=== PATIENT | female | born 1990 | race Caucasian/White ===

== ENCOUNTER 2017-12-22 14:40 | Emergency (ER) | payer SELFPAY ==
[2017-12-22 14:41] VITALS: BP 130/81; PULSE 123; RESP 16; TEMP 37.2; O2SAT 99; BMI 29.1
--- NOTE | 2017-12-22 15:00 | ED.RN ---
Patient reports bilateral nipple piercing on 12/02 and 1 week later, tatoo to right inner calf area. C/o drainage from tatoo area which is not present at this time. Bilateral nipples tender but without redness however there is some spotty redness to right lateral breast and under left breast. Unknown fevers.
--- NOTE | 2017-12-22 15:14 | ED.DCSUM_ITS ---
- ER Visit Summary Date of Service: 12/22/17 Chief Complaint: Nipple piercing infection History of Present Illness: The patient is a 27 F the emergency department 3 days of fever, chills, and drainage from bilateral nipple piercings. Patient states that she had this done about 3 weeks ago. She states that she was recovering without issue. Over the past 3 days, she began to develop pain in her left breast. She states that she had some crusting and purulent drainage from the piercing. Her fianc? is a glazier artist. She was doing warm compresses and antiseptic wash. She states that the symptoms actually improved , but have not moved to the right breast. She has begun to have subjective fevers and chills. She is also had nausea. She has no history of immunosuppression. She does not take any daily medication. She denies any other systemic complaints. Physical Examination: Vital signs reviewed General: Well-nourished, well-developed Head: Normocephalic, atraumatic Eyes: Pupils equal and reactive, extraocular muscles intact Neck, supple, no lymphadenopathy Heart: Regular rate and rhythm Respiratory: No distress, clear bilaterally Abdomen: Soft, nontender, nondistended, no peritoneal signs Back: Nontender Extremities: Nontender, no edema, no cords Skin: Normal color no rash Neuro: Alert and oriented, no focal or lateralizing deficits Test Results: [] Emergency Department Course and Treatment: Breast exam is done with nurse junk removal specialist. Patient does have some scant crusting drainage from the left nipple piercing. There is no abscess. There is no fluctuance. There is no streaking. There is no purulence can be expressed from the right piercing. She does have some streaking approximately 2 cm at the right lateral aspect of the nipple into the breast tissue. There is no lymphadenopathy in the axilla. There is no focal abscess. I did discuss options with the patient. I do feel that the piercings are still new enough that they are encouraging any drainage. I am hesitant to remove the piercings at this time because it is draining around it. I did consumer credit counselor patient on continuing warm compresses and antiseptic cleansing. We are going to do oral antibiotics in a short course of analgesic pain medication. I did consumer credit counselor her that if her symptoms worsen at all within the next 24-48 hours, she needs to return immediately to the emergency department as we will likely have to remove the piercings at that time, but I do feel that they are likely encouraging the drainage. She is comfortable with this plan of care. Patient will be discharged home. Treatment Plan: [] Disposition: Charge Impression: 1. Bilateral piercing infection of the nipples This note was generated with [employer] dictation software. It may contain incorrect words, spelling, and punctuation that were not noted in review of the chart prior to signing ED Disposition - Plan for ED Patient: Chief Complaint: Wound Check Instructions: ED Wound Infec After Surgery Prescriptions: Hydrocodone Bitart/Apap 5-325 [[place] 5/325] 1 tab PO Q6H PRN PRN 3 Days #12 tab PRN Reason: Pain Ondansetron [Zofran Odt] 4 mg PO Q8H PRN PRN #10 tab PRN Reason: Nausea Cephalexin [Keflex] 500 mg PO Q8 #30 cap Smz/Tmp Ds [Bactrim Ds] 1 tab PO BID #20 tab Referrals: Antoine Martinez III, MD [Primary Care Provider] -
[2017-12-22] MEDS: Ondansetron ODT 4 MG Tablet PO (15:35)
[2017-12-22] MEDS: HYDROcodone Bitartrate/Apap 5/325 Tablet PO (15:35)
[2017-12-22] MEDS: Smz/Tmp Ds Tablet 1 TABLET PO (15:36)
[2017-12-22 15:39] VITALS: BP 120/106; PULSE 110; RESP 14; O2SAT 100; O2SAT 99
== END 2017-12-22 15:43 | disposition home or self-care (01) ==
PROVIDERS: Emergency Provider Emergency Medicine; Family Provider Family Medicine; PCP Family Medicine
DX: N61.0 Mastitis without abscess (principal)
CPT/HCPCS: 99283

== ENCOUNTER 2018-04-30 17:18 | Emergency (ER) | payer MEDICAID, SELFPAY ==
[2018-04-30 17:19] VITALS: BP 127/68; PULSE 90; RESP 18; TEMP 37.6; O2SAT 99; BMI 29.0
[2018-04-30] MEDS: Ondansetron 4 MG/2 ML Vial IV (17:49)
[2018-04-30] MEDS: Ketorolac 30 MG/ML Syringe IV (17:49)
[2018-04-30] MEDS: 0.9% Normal Saline 1,000 ML 1000 ML IV (17:50)
--- NOTE | 2018-04-30 18:42 | ED.DCSUM_ITS ---
- ER Visit Summary Date of Service: 04/30/18 Chief Complaint: Vomiting History of Present Illness: The patient is a [address] Antoine Martinez III. She reports that she has vomiting that began at 1130 this morning. She is vomited 5 times. No blood or emesis. After the onset of vomiting she developed abdominal pain. She describes as a continuous cramping, aching pain Zeta 10 at worst and 6 out of 10 currently. Is worsened by nothing relieved by nothing. Denies any diarrhea. Her last bowel was today. She had no melena or hematochezia. No dysuria frequency. She is on her menstrual period now. Patient reports that her friend told her that she has been vomiting today as well. Has not been camping out of the country. No possible bad food exposure. Does not drink well water. No recent antibiotic use. Physical Examination: Vitals: Stable. Afebrile. General: Well-nourished and well-developed. Head: Normocephalic atraumatic. Neck: Supple, no lymphadenopathy. No JVD. Nontender. Cardiovascular: Regular rate and rhythm. No murmurs. Respiratory: No respiratory distress. Clear to auscultation bilaterally. Abdominal: Soft, mild diffuse tenderness palpation, nondistended, normal bowel sounds. No guarding, rebound, or peritoneal signs. Back: Nontender. Extremities: Nontender, no edema. Skin: Normal color, no rash. Neurologic: Alert and oriented ?3. Cranial nerves II through XII are intact. Normal strength and sensation. Psych: Normal affect. Emergency Department Course and Treatment: Patient had an IV placed. She was given Toradol and Zofran IV. She is resting comfortably. She had no further vomiting. Treatment Plan: Patient be discharged with Zofran and instructed follow-up her primary care physician 1-2 days if not improving. Return to the emergency department for any worsening symptoms. Disposition: To home in improved and stable condition. Impression: 1. Vomiting. This note was generated with [employer] dictation software. It may contain incorrect words, spelling, and punctuation that were not noted in review of the chart prior to signing ED Disposition - Plan for ED Patient: Disposition: Home or Assisted Living Chief Complaint: Nausea/Vomiting Instructions: ED Nausea Vomiting Prescriptions: Ondansetron [Zofran Odt] 4 mg PO Q8H PRN PRN #10 tablet PRN Reason: Nausea Referrals: Antoine Martinez III, MD [Primary Care Provider] - 1-2 Days if not improving
[2018-04-30 18:50] VITALS: BP 134/71; PULSE 78; RESP 15; O2SAT 98
== END 2018-04-30 18:51 | disposition home or self-care (01) ==
PROVIDERS: Emergency Provider Emergency Medicine; Family Provider Family Medicine; PCP Family Medicine
DX: R11.10 Vomiting, unspecified (principal); Z72.0 Tobacco use
CPT/HCPCS: 96361; 96374; 96375; 99283; J7030; J2405

== ENCOUNTER 2018-05-19 17:12 | Emergency (ER) | payer MEDICAID, SELFPAY ==
[2018-05-19 17:14] VITALS: BP 133/73; PULSE 84; RESP 16; TEMP 37.1; O2SAT 97; BMI 29.0
--- NOTE | 2018-05-19 17:55 | ED.VISSUMM ---
- ER Visit Summary Date of Service: 05/19/18 Chief Complaint: Dental pain History of Present Illness: The patient is a 27 F who presents with left lower dental pain that has been getting worse over the past couple days. Patient states she knows she has a cavity over the left lower molar area. Patient states she has an appointment with a dentist. Patient denies any fevers or chills. Patient denies any difficulty breathing or difficulty swallowing. Patient states the pain is worse with chewing. Physical Examination: Vital signs are stable. Patient is afebrile. Patient is in no acute distress. Oral mucosa is pink and moist. There are dental caries noted over the left lower second and third molars. There is some mild gingival edema. There is no discharge or drainage. There is no sublingual edema or erythema. Airway is patent. Neck is supple. There is no JVD or lymphadenopathy. The remaining physical exam is within normal limits. Emergency Department Course and Treatment: Patient was given prescriptions for clindamycin and Naprosyn. Patient was instructed to follow-up with her dentist as scheduled. Patient understood and was agreeable with the plan. All questions were answered. Disposition: Discharge home Impression: Infected dental caries This note was generated with [employer] dictation software. It may contain incorrect words, spelling, and punctuation that were not noted in review of the chart prior to signing ED Disposition - Plan for ED Patient: Disposition: Home or Assisted Living Chief Complaint: Dental Diagnosis: Infected dental caries Instructions: ED Tooth Pain Prescriptions: Naproxen [Naprosyn] 500 mg PO BID PRN #20 tab Clindamycin HCl [Cleocin] 300 mg PO Q6H #40 cap Referrals: Antoine Martinez III, MD [Primary Care Provider] -
[2018-05-19 18:30] VITALS: BP 135/70; PULSE 84; RESP 18
== END 2018-05-19 18:31 | disposition home or self-care (01) ==
PROVIDERS: Emergency Provider Emergency Medicine; Family Provider Family Medicine; PCP Family Medicine
DX: K02.9 Dental caries, unspecified (principal); K04.7 Periapical abscess without sinus
CPT/HCPCS: 99282

== ENCOUNTER 2021-01-09 07:44 | Emergency (ER) | payer SELFPAY ==
[2021-01-09 07:45] VITALS: BP 117/88; PULSE 94; RESP 16; TEMP 36.1; O2SAT 98; BMI 27.3
--- NOTE | 2021-01-09 07:54 | EKG12_ITS ---
Test Reason : CP Blood Pressure : / mmHG Vent. Rate : 086 BPM Atrial Rate : 086 BPM P-R Int : 166 ms QRS Dur : 082 ms QT Int : 352 ms P-R-T Axes : 073 076 061 degrees QTc Int : 421 ms Normal sinus rhythm Normal ECG Confirmed by RABIA GRANADO, JACQUELINE ([id number]), editorial cartoonist BELTRAN HAWKINS ([id number]) on 01/11/2021 11:28:56 AM Referred By: Confirmed By:JACQUELINE CAMARILLO MD
--- NOTE | 2021-01-09 07:55 | ED.DCSUM_ITS ---
History of Present Illness Chief Complaint: Chest Other Informant: Patient Narrative: 30-year-old healthy female presents with lower right mid axillary and anterior chest pain. Symptoms began 5 days ago. She denies any trauma or known injury. States it is worse with movement and with touch. She also notes its worse when she coughs or sneezes. No nausea or vomiting. No fevers. She states that she really does not have much of a cough and there is no sputum production. She denies any prior abdominal surgeries or any abdominal symptoms. No urinary symptoms. She has been eating normally. She denies any rashes. She states that she googled her symptoms and wonders if she has slipping rib syndrome. She states she has tried Tylenol and anti-inflammatories as well as heat and ice with no relief. Past Medical History - Allergies and Home Meds Allergies/Adverse Reactions: Allergies amoxicillin [Amoxicillin] Allergy (Verified 01/09/21 07:45) Hives Primary Care Physician: Antoine Martinez III, MD [Primary Care Provider] - 1 Week if not improving Past Medical History: None Surgical History: noncontributory Smoking Status: Current some day smoker Drugs: None Review of Systems General: Denies: Chills, Fever, Sweats Eyes: Denies: Visual changes - bilaterally, Diplopia ENT: Denies: Rhinorrhea, Sore throat Cardiovascular: Reports: Chest pain. Denies: Palpitations Respiratory: Denies: Dyspnea, Cough, Dyspnea on exertion Gastrointestinal: Denies: Abdominal pain, Nausea, Vomiting, Diarrhea, Melena, Hematochezia Genitourinary: Denies: Dysuria, Hematuria, Frequency Musculoskeletal: Denies: Back pain, Extremity Pain Skin: Denies: Rash, Wounds Neurological: Denies: Headache, Weakness, Numbness Physical Exam Vital Signs/Narrative: Vital Signs Temp Pulse Resp BP Pulse Ox 01/09/21 07:45 96.9 F L 94 16 117/88 H 98 Inital Vital Signs reviewed: Yes General: Well nourished, Well developed, No Acute Distress Head: Normocephalic, Atraumatic Eyes: Perrl, EOMI ENT: Moist mucous membranes, No rhinorrhea Neck: Supple, Nontender Cardiovascular: Regular rate, Regular rhythm, No murmurs Respiratory: No distress, CTA bilaterally, Chest tenderness - Patient has exquisite tenderness to palpation over the right lower mid axillary and anterior ribs. Touch reproduces her pain. Abdomen: Soft, Nontender, Nondistended, Normal bowel sounds Back: Nontender, Normal Inspection Extremities: Nontender, No edema Skin: Normal color, No rash Neurological: Alert, Oriented x3, Cranial nerves II-XII grossly intact, Normal Strength, Normal Sensation Psychological: Normal affect, Normal Mood Diagnostic/Tx/Re-eval Clinical Impression(s) from Imaging Studies Chest X-Ray 01/09/21 08:20 IMPRESSION: Normal x-ray examination of the chest. Electronically Signed: Chao Jara MD at 8:36 EDT , Service support , Chest CTA 01/09/21 08:42 IMPRESSION: Normal CTA chest examination, without a demonstrated pulmonary embolism or arterial dissection. Electronically Signed: Chao Jara MD at 9:11 EDT , Service support , Laboratory Last Values WBC 10.2 K/mm3 (4.4-11.0) 01/09/21 08:00 RBC 4.36 M/mm3 (4.2-5.4) 01/09/21 08:00 Hgb 13.0 g/dL (12.0-15.0) 01/09/21 08:00 Hct 40.1 % (37-47) 01/09/21 08:00 MCV 92.0 fL (81-99) 01/09/21 08:00 MCH 29.8 pg (27.0-32.0) 01/09/21 08:00 MCHC 32.4 g/dL (32-36) 01/09/21 08:00 RDW Std Deviation 42.0 fl (35.1-43.9) 01/09/21 08:00 RDW Coeff of Kala 12.2 % (11.6-14.6) 01/09/21 08:00 Plt Count 360 K/mm3 (150-450) 01/09/21 08:00 MPV 9.5 fl (6.2-12.0) 01/09/21 08:00 Immature Gran % (Auto) 0.300 % (0.0-0.9) 01/09/21 08:00 Neut % (Auto) 69.4 % (47-70) 01/09/21 08:00 Lymph % (Auto) 16.6 % (19-41) L 01/09/21 08:00 [place] % (Auto) 6.8 % (0-10) 01/09/21 08:00 Eos % (Auto) 6.4 % (0-5) H 01/09/21 08:00 Baso % (Auto) 0.5 % (0-1) 01/09/21 08:00 Absolute Neuts (auto) 7.1 X10^3/uL (2.0-7.7) 01/09/21 08:00 Absolute Lymphs (auto) 1.70 X10^3/uL (0.83-4.51) 01/09/21 08:00 Nucleated RBC % 0 % (0-5) 01/09/21 08:00 D-Dimer Quant (PE/DVT) 2.89 FEU/ug/m (0.27-0.49) H* 01/09/21 08:00 Sodium 137 mmol/L (136-145) 01/09/21 08:00 Potassium 3.4 mmol/L (3.5-5.1) L 01/09/21 08:00 Chloride 105 mmol/L (98-107) 01/09/21 08:00 Carbon Dioxide 28.0 mmol/L (21.0-32.0) 01/09/21 08:00 Anion Gap 4 (5-15) L 01/09/21 08:00 BUN 7 mg/dL (7-18) 01/09/21 08:00 Creatinine 0.74 mg/dL (0.55-1.02) 01/09/21 08:00 Estim Creat Clear Calc 104.06 ml/min 01/09/21 08:00 Est GFR (MDRD) Af Amer 118 mL/min (>60) 01/09/21 08:00 Est GFR (MDRD) Non-Af 97 mL/min (>60) 01/09/21 08:00 BUN/Creatinine Ratio 9.4 RATIO (10-20) L 01/09/21 08:00 Glucose 118 mg/dL (74-106) H 01/09/21 08:00 Calcium 8.5 mg/dL (8.5-10.1) 01/09/21 08:00 Total Bilirubin 0.40 mg/dL (0.20-1.00) 01/09/21 08:00 AST 7 U/L (15-37) L 01/09/21 08:00 ALT 15 U/L (13-56) 01/09/21 08:00 Alkaline Phosphatase 82 U/L (45-117) 01/09/21 08:00 Troponin I < 0.015 ng/mL (<0.045) 01/09/21 08:00 Total Protein 7.9 g/dL (6.4-8.2) 01/09/21 08:00 Albumin 3.1 g/dL (3.2-5.0) L 01/09/21 08:00 Globulin 4.8 g/dL (2.2-4.2) H 01/09/21 08:00 Albumin/Globulin Ratio 0.6 RATIO (0.9-2.4) L 01/09/21 08:00 Lipase 43 U/L (73-393) L 01/09/21 08:00 Urine Color Yellow (Yellow) 01/09/21 08:10 Urine Clarity Sl. Cloudy (Clear) 01/09/21 08:10 Urine pH 6.0 (5.0 - 8.0) 01/09/21 08:10 Ur Specific Gerber 1.015 (1.002-1.030) 01/09/21 08:10 Urine Protein Negative mg/dl (Negative) 01/09/21 08:10 Urine Glucose (UA) Normal mg/dl (Normal) 01/09/21 08:10 Urine Ketones Negative mg/dl (Negative) 01/09/21 08:10 Urine Occult Blood 50 /ul (Negative) H 01/09/21 08:10 Urine Nitrite Negative (Negative) 01/09/21 08:10 Urine Bilirubin Negative mg/dL (Negative) 01/09/21 08:10 Urine Urobilinogen Normal mg/dl (Normal) 01/09/21 08:10 Ur Leukocyte Esterase 25 /ul (Negative) H 01/09/21 08:10 Urine RBC 0 SEEN /hpf (0-5) 01/09/21 08:10 Urine WBC 0-5 SEEN /hpf (0-5) 01/09/21 08:10 Ur Squamous Epith Cells 0-5 SEEN /hpf (5-10) 01/09/21 08:10 Urine Bacteria RARE /hpf (None Seen) 01/09/21 08:10 Urine Mucus 2+ /hpf (<or=2+) 01/09/21 08:10 Urine Test Negative Negative 01/09/21 08:10 - EKG Initial EKG Interpretation: Sinus Rhythm - EKG demonstrates a normal sinus rhythm at a rate of 86. No concerning features of ACS or ectopy noted. - Medical Decision Making My interpretation of the single view portable chest x-ray is no acute disease. The patient blood work was negative except for a elevated D-dimer. CTA of the chest was ordered which is negative for pulmonary embolism. The patient received Toradol with some improvement of pain at this point the patient's pain is very reproducible with touch and movement. I think is most likely chest wall related on when I have her do a scheduled anti-inflammatories as well as some F lexeril. Recommend heat and wall stabilization with a throw pillow. Follow-up with primary care if not improving ED Disposition - Plan for ED Patient: Disposition: Home or Assisted Living Diagnosis: Rib pain on right side Instructions: ED Strain Chest Wall Prescriptions: cycloBENZAPRine HCl [Flexeril] 10 mg PO TID PRN #15 tab PRN Reason: Muscle Spasm Prescription Printed Ketorolac [Toradol] 10 mg PO TID #15 tablet Prescription Printed Referrals: Antoine Martinez III, MD [Primary Care Provider] - 1 Week if not improving
[2021-01-09] MEDS: Ketorolac 30 MG/ML Syringe IV (08:01)
[2021-01-09 08:16] LABS: Absolute Neutrophil Count 7.1 X10^3/uL (2.0-7.7); Basophil# 0.05 X10^3/uL; Basophil% 0.5 % (0-1); Eosinophil# 0.65 X10^3/uL; Eosinophils% 6.4 % (0-5); Hematocrit 40.1 % (37-47); Lymphocyte % 16.6 % (19-41); Mean Corp Hgb Conc 32.4 g/dL (32-36); Mean Corpuscular Hgb 29.8 pg (27.0-32.0); Mean Platelet Vol. 9.5 fl (6.2-12.0); Monocyte# 0.69 X10^3/uL; Monocyte% 6.8 % (0-10); NRBC Flagged by Analyzer 0 % (0-5); Neutrophil % 69.4 % (47-70); Platelet Count 360 K/mm3 (150-450); RBC Distribution Width CV 12.2 % (11.6-14.6); Red Blood Count 4.36 M/mm3 (4.2-5.4); White Blood Count 10.2 K/mm3 (4.4-11.0)
[2021-01-09 08:18] LABS: Color, Urine Yellow (Yellow); Glucose, Dipstick Normal (Normal); Ketone-Dipstick Negative (Negative); Leukocyte Esterase-Dipstick 25 /ul (Negative); Nitrite-Dipstick Negative (Negative); Occult Blood-Urine 50 /ul (Negative); Protein-Dipstick Negative (Negative); Red Blood Cells-Urine 0 SEEN /hpf (0-5); Specific Gravity, Urine 1.015 (1.002-1.030); Urine Bilirubin Dipstick Negative (Negative); Urine Clarity Sl. Cloudy (Clear); Urine Urobilinogen Normal (Normal)
--- NOTE | 2021-01-09 08:20 | RAD_ITS ---
STUDY: X-RAY CHEST REASON FOR EXAM: Female, 30 years old. Chest pain . 5 day history of right-sided rib pain. TECHNIQUE: Single AP portable view of the chest. COMPARISON: Comparison is made with prior study 05/18/2011. FINDINGS: The lungs are clear and expanded. There is no demonstrated pleural abnormality. Normal size heart. Normal mediastinum and francia. Normal visualized pulmonary arteries. Normal visualized aortic arch and descending thoracic aorta. Normal visualized thoracic spine. Normal visualized ribs, clavicles, and shoulders. There is no demonstrated abnormality of the visualized soft tissue structures of the upper abdomen. RAD/Chest 1 View (Portable) IMPRESSION: Normal x-ray examination of the chest. Electronically Signed: Chao Jara MD at 8:36 EDT , Service support ,
[2021-01-09 08:28] LABS: White Blood Cells 0-5 SEEN /hpf (0-5)
[2021-01-09 08:29] LABS: Bacteria RARE /hpf (None Seen); Mucous, Urine 2+ /hpf (<or=2+); Squamous Epithelial Cells - UA 0-5 SEEN /hpf (5-10)
[2021-01-09 08:30] LABS: Internal QC Validated? YES +Cl - CLEAR BKGD; Pregnancy, Urine Negative Negative
[2021-01-09 08:35] LABS: ALB/GLOB Ratio 0.6 RATIO (0.9-2.4); AST(SGOT) 7 U/L (15-37); Alanine Aminotransfer ALT/SGPT 15 U/L (13-56); Albumin, Serum 3.1 g/dL (3.2-5.0); Alkaline Phosphatase 82 U/L (45-117); Anion Gap 4 (5-15); BUN 7 mg/dL (7-18); BUN/Creat Ratio 9.4 RATIO (10-20); Calcium,Total 8.5 mg/dL (8.5-10.1); Chloride 105 mmol/L (98-107); Creatinine, Serum 0.74 mg/dL (0.55-1.02); EST Glomerular Filtration Rate 97 mL/min (>60); Est Glom Filt Rate - Afr Amer 118 mL/min (>60); Estimated Creatinine Clearance 104.06 ml/min; Globulin 4.8 g/dL (2.2-4.2); Glucose 118 mg/dL (74-106); Lipase 43 U/L (73-393); Potassium 3.4 mmol/L (3.5-5.1); Protein, Total 7.9 g/dL (6.4-8.2); Sodium Level 137 mmol/L (136-145)
[2021-01-09 08:36] LABS: D-Dimer Quantitative (DVT/PE) 2.89 FEU/ug/m (0.27-0.49)
--- NOTE | 2021-01-09 08:42 | CT_ITS ---
STUDY: CTA CHEST REASON FOR EXAM: Female, 30 years old. Chest pain elevated d-dimer RADIATION DOSAGE (If Supplied By Facility): CTDIvol = ( 10.21 ) mGy, DLP = ( 351.41 ) mGycm TECHNIQUE: The examination was performed with the intravenous administration of IV 75mL Isovue-370. Post-processing of the angiographic images was performed, with multiplanar reformation and 3D reconstruction. Individualized dose optimization techniques were used for this CT. COMPARISON: Comparison is made with prior CT scan of the thorax dated 10/18/2013 and prior chest radiograph done earlier today. FINDINGS: Normal enhancement of the main pulmonary artery and right and left pulmonary arteries. Normal enhancement of the bilateral peripheral pulmonary arteries. There is no demonstrated pulmonary embolism. Normal thoracic aorta and visualized great vessels. There is no demonstrated aortic dissection. Normal heart and pericardium. Normal mediastinum. Normal hilar regions. Normal visualized trachea and bronchi. The lungs are well expanded. Normal pulmonary parenchyma. Normal pleura. Normal chest wall structures. Normal osseous structures. Normal visualized upper abdomen. CT/CTA Chest W/WO Contrast IMPRESSION: Normal CTA chest examination, without a demonstrated pulmonary embolism or arterial dissection. Electronically Signed: Chao Jara MD at 9:11 EDT , Service support ,
[2021-01-09 09:44] VITALS: BP 110/74; PULSE 83; RESP 16; O2SAT 97; O2SAT 99
== END 2021-01-09 09:45 | disposition home or self-care (01) ==
PROVIDERS: Emergency Provider Emergency Medicine; PCP Family Medicine
DX: R07.81 Pleurodynia (principal); F17.200 Nicotine dependence, unspecified, uncomplicated
CPT/HCPCS: 71045; 71275; 80053; 81001; 81025; 83690; 84484; 85025; 85379; 93005; 96374; 99283; Q9967; A4216

== ENCOUNTER 2023-05-13 12:57 | Emergency (ER) | payer MEDICAID, SELFPAY ==
[2023-05-13 12:57] VITALS: BP 127/95; PULSE 136; RESP 16; TEMP 36.6; O2SAT 99; BMI 29.0
--- NOTE | 2023-05-13 13:09 | EDS_ITS ---
HPI HPI - Psych History of Present Illness Chief Complaint: Mental Health PFSH PFS Home Medications NK 05/13/23 [History Last Taken Unknown] Allergy/AdvReac Type Severity Reaction Status Date / Time amoxicillin [Amoxicillin] Allergy Hives Verified 05/13/23 13:01 Social History Smoking Status: Former smoker EXAM Physical Exam Const Vital Signs: 05/13/23 12:57 05/13/23 14:03 Temperature 98 F Temperature Source Temporal Pulse Rate 136 H 110 H Respiratory Rate 16 16 Blood Pressure 127/95 H 121/71 H Blood Pressure Mean 105 87 Pulse Ox 99 98 Oxygen Delivery Method Room Air Room Air MDM MDM MDM Narrative Medical decision making narrative: HISTORY OF PRESENT ILLNESS: 22-year-old female here with suicidal thoughts. Notes recent life stressors. Denies any drug use, alcohol use. Denies history of prior suicide attempts. Denies any prior history of inpatient admission. Notes chronic dental pain for which she states she needs to see a dentist and would like some antibiotics. She states no headache, no neck pain no chest pain no shortness of breath no fev er no abdominal pain no vaginal bleeding, no urinary complaints. States she is concerned about her thoughts and like to be evaluated by behavioral health specialist. Her mother is with her who agrees with this thinks the patient's not safe at home. REVIEW OF SYSTEMS: Pertinent positives: Suicidal thoughts Pertinent negatives: Plan, homicidal ideation, auditory visual hallucinations PHYSICAL EXAM: Nursing triage notes reviewed, Vital signs reviewed Constitutional: please see mdm HENT: MMM, poor dentition, dental caries, no obvious dental abscess, no submandibular edema. Eyes: Pupils equal round and reactive to light, Extraocular muscles intact Neck: No stridor, no JVD, full neck ROM Lungs: Clear to auscultation, No wheezing or rales. No increased work of breathing, no conversational dyspnea, no accessory muscle use, no nasal flaring. No respiratory distress noted Heart: Regular but fast rate and rhythm, No murmurs, No rubs and No gallops, 2+ distal pulses (radial, femoral, posterior tibial) in all extremities Abdomen: Soft, there is no tenderness, rigidity, rebound or guarding, no obvious peritoneal signs, no palpable pulsatile abdominal masses, no auscultated abdominal bruit : No CVAT Extremities: No edema Neuro: No focal neurological deficits, cranial nerves II through XII intact, 5/5 strength in all extremities. Intact sensation to light touch in all extremities, 2+ reflexes bilateral patella tendons. Normal gait. No ataxia. Skin: No rash or lesions noted Psych: Tearful, goal-directed thought process, does not respond internal stimuli. MEDICAL DECISION MAKING: Chief Complaint: Suicidal thoughts External records reviewed: Outpatient records reviewed: Seen for unspecified mood disorder in 2013 Factors affecting care: none Social determinants of health:recent life stressors History obtained from others: The patient's mother Consults: Behavioral health ALL IMAGES (IF OBTAINED) HAVE BEEN PERSONALLY REVIEWED AND INTERPRETED BY MYSELF. MDM Narrative: Patient was initially tachycardic otherwise hemodynamically stable, afebrile, nontoxic-appearing. Patient is initially tachycardic however on EKG there is no evidence of myocardial schema arrhythmia or abnormal heart rate. Given patient's report of suicidal thoughts did obtain medical clearance labs. Did consult behavioral health expert to evaluate patient ED and determine if she is appropriate for further psychiatric evaluation. Behavioral health evaluated the patient. Patient recanted suicidal ideation, she contracts to safety. She is given close outpatient follow-up with strict return precautions. The patient and mother agree with the plan and expressed understanding. They agree to return if symptoms change or worsen. Of note patient did have dental caries and poor dentition I did give her clindamycin for antimicrobial prophylaxis as well as dentistry resources if she is approved for discharge. Wrote clindamycin as an outpatient. The patient and/or family, caregivers express understanding. The patient and/or family, caregivers agrees with the plan. Shared decision making: I will have a discussion with the patient and or visitors regarding risk/benefits of further testing or admission. They will be made aware of of the risk/benefits inherent in this decision they will be given the opportunity to voice understanding. Total critical care time today provided was at least 0 minutes. This excludes separately billable procedures. Critical care time (if documented) is secondary to the patient having high probability of clinically significant/life thre atening deterioration in the patient's condition which required my urgent intervention. Lab Data Labs: Laboratory Results - last 24 hr 05/13/23 05/13/23 13:45 15:00 WBC 9.9 RBC 4.33 Hgb 13.5 Hct 39.5 MCV 91.2 MCH 31.2 MCHC 34.2 RDW Std Deviation 41.3 RDW Coeff of Kala 12.5 Plt Count 324 MPV 9.6 Immature Gran % (Auto) 0.200 Neut % (Auto) 63.3 Lymph % (Auto) 26.9 [place] % (Auto) 5.6 Eos % (Auto) 3.4 Baso % (Auto) 0.6 Absolute Neuts (auto) 6.3 Absolute Lymphs (auto) 2.67 Nucleated RBC % 0 Sodium 138 Potassium 3.4 L Chloride 106 Carbon Dioxide 28.0 Anion Gap 4 L BUN 8 Creatinine 0.75 Estim Creat Clear Calc 104.72 Est GFR (MDRD) Af Amer 115 Est GFR (MDRD) Non-Af 95 BUN/Creatinine Ratio 10.6 Glucose 94 Calcium 8.4 L Serum , Qual NEGATIVE Ur Drug Screen Comment Ethyl Alcohol < 3.0 Discharge Plan Triage Chief Complaint: Mental Health ED Provider: Conor Ingram Dx/Rx/DC Orders Clinical Impression: Suicidal thoughts Instructions: Suicide Recognize Own Warnings Prescriptions: No Action NK Primary Care Provider: Care Physician,No Primary Referrals: Nehemias Aparicio, DO [Med Staff - [facility]] - NOT,DEFINED [Non-Staff] - Activity Restrictions/Additional Instructions: Thank you for trusting us with your care today! Please return if you develop any suicidal thoughts if you do not feel safe at home. Please return to the emergency department if your symptoms change or worsen. Please follow with your primary care physician for further outpatient evaluation and management. Disposition Disposition: Home, Self Care
--- NOTE | 2023-05-13 13:42 | ED.RN ---
NO SITTER NEEDED AT THIS TIME PER DR RED. PT HAVING VAGUE SUICIDAL THOUGHTS, NO PLAN OR INTENT. PT REQUESTS INPATIENT PSYCHIATRIC PLACEMENT.
[2023-05-13] MEDS: Clindamycin HCl 150 MG Capsule 300 MG PO (13:46)
[2023-05-13 13:54] LABS: Absolute Lymphocyte Count 2.67 X10^3/uL (0.83-4.51); Absolute Neutrophil Count 6.3 X10^3/uL (2.0-7.7); Basophil# 0.06 X10^3/uL; Basophil% 0.6 % (0-1); Eosinophil# 0.34 X10^3/uL; Eosinophils% 3.4 % (0-5); Hematocrit 39.5 % (37-47); Hemoglobin 13.5 g/dL (12.0-15.0); Lymphocyte # 2.67 X10^3/ul (0.83-4.51); Lymphocyte % 26.9 % (19-41); Mean Corp Hgb Conc 34.2 g/dL (32-36); Mean Corpuscular Hgb 31.2 pg (27.0-32.0); Mean Corpuscular Volume 91.2 fL (81-99); Mean Platelet Vol. 9.6 fl (6.2-12.0); Monocyte# 0.56 X10^3/uL; Monocyte% 5.6 % (0-10); NRBC Flagged by Analyzer 0 % (0-5); Neutrophil # 6.27 X10^3/uL (2.7-7.7); Neutrophil % 63.3 % (47-70); Platelet Count 324 K/mm3 (150-450); RBC Distribution Width CV 12.5 % (11.6-14.6); RBC Distribution Width SD 41.3 fl (35.1-43.9); Red Blood Count 4.33 M/mm3 (4.2-5.4); White Blood Count 9.9 K/mm3 (4.4-11.0)
[2023-05-13 14:03] VITALS: BP 121/71; PULSE 110; RESP 16; O2SAT 98
[2023-05-13 14:07] LABS: Anion Gap 4 (5-15); BUN 8 mg/dL (7-18); BUN/Creat Ratio 10.6 RATIO (10-20); Calcium,Total 8.4 mg/dL (8.5-10.1); Chloride 106 mmol/L (98-107); Creatinine, Serum 0.75 mg/dL (0.55-1.02); EST Glomerular Filtration Rate 95 mL/min (>60); Est Glom Filt Rate - Afr Amer 115 mL/min (>60); Estimated Creatinine Clearance 104.72 ml/min; Glucose 94 mg/dL (74-106); Potassium 3.4 mmol/L (3.5-5.1); Sodium Level 138 mmol/L (136-145)
[2023-05-13 14:11] LABS: Internal QC Validated? YES +Cl - CLEAR BKGD; Pregnancy, Serum, hCG Quali. NEGATIVE Negative
[2023-05-13 14:14] LABS: Alcohol, Blood (Medical)-Serum < 3.0 mg/dL
[2023-05-13 15:27] LABS: Amphetamine Urine VISTA NEGATIVE (<1000 ng/mL); Barbiturate Urine VISTA NEGATIVE (< 200 ng/mL); Benzodiazepine Urine VISTA NEGATIVE (< 200 ng/mL); Cocaine Urine VISTA NEGATIVE (< 300 ng/mL); Ecstacy Urine VISTA POSITIVE (< 500 ng/mL); Methadone Urine VISTA NEGATIVE (< 300 ng/mL); PCP Urine VISTA NEGATIVE (< 25 ng/mL); THC Urine VISTA POSITIVE (< 50 ng/mL); Vista UDS pH Range 6
[2023-05-13 15:32] VITALS: BP 129/59; PULSE 71; RESP 16; O2SAT 98
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
--- NOTE | 2023-05-14 17:30 | CM.ED ---
Social Work SW attempted to contact patient at the phone number listed twice to follow up regarding safety plan completed 05/13/23. Patient did not answer; SW unable to leave VM as patient's phone states this wireless caller is unavailable and then disconnects. Yanely Kim SLOT SERVICE SPECIALIST, NIR
== END 2023-05-13 15:33 | disposition home or self-care (01) ==
PROVIDERS: Emergency Provider Emergency Medicine; Visit Provider Emergency Medicine
DX: R45.851 Suicidal ideations (principal); G89.29 Other chronic pain; K08.89 Other specified disorders of teeth and supporting structures; Z87.891 Personal history of nicotine dependence
CPT/HCPCS: 80048; 80307; 82077; 84703; 85025; 93005; 99282

== ENCOUNTER 2023-06-02 09:00 | Outpatient (RCR) | payer MEDICAID, SELFPAY ==
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
[2023-06-03 08:46] VITALS: BP 145/91; PULSE 68
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
--- NOTE | 2023-06-03 13:12 | BH.DR.ITP ---
Initial Treatment Plan Patient Information Visit Information: ADMISSION DATE: EXPECTED LOS: 4-6 weeks Problems/Symptoms Problem #1:: Depression Symptom:: Sadness, hopelessness, guilt, biological disruption of sleep, decreased concentration, low energy, passive thoughts of Problem #2:: Anxiety Symptom:: Worry, rumination, panic attacks, avoidance, flashbacks
--- NOTE | 2023-06-09 11:44 | BH.COMM ---
Communication Note Communication with Client Communication Note: Pt called off yesterday and today due to illness
--- NOTE | 2023-06-10 11:57 | BH.COMM ---
Communication Note Communication with Client Communication Note: Pt cancelled IOP on 06/08 and 06/09 due to illness. She did not call or show today and this therapist reached out. Pt remains ill today. She is scheduled to work and Thursday. Plan is for her attend IOP next week on Thu, , and .
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
--- NOTE | 2023-06-16 09:05 | BH.SGPN.GN ---
Behaviors/Verbalizations/Mental Status: [] Eye contact is poor. Motor activity is appropriate. Appearance is casual. Speech is Appropriate. Mood is anxious. Affect is congruent. Thoughts are linear and logical. No evidence of psychosis. Reviewed daily check in sheet and no reports of suicidal ideations or intent. Client Response/Progress/Benefit: [] Pt participated at times during the group discussion. Attentive. Daily symptom tracker notes 11/30 for depression, anxiety, and irritability. Emotion for today is ?mellow?. Feels that she is ?handling her anxiety and stress well?. In the past week she reports ?removing a lot of stressors?. She talked specifically about certain relationships in her life. Elaborated on the mental health impact of setting boundaries. Progress noted per pt report. Benefited from group support, encouragement, and feedback. Will continue in IOP to maintain prevent decompensation, stabilize mood, and increase healthy coping skills. Narrative Note: []
--- NOTE | 2023-06-16 10:15 | BH.SGPN.GN ---
Behaviors/Verbalizations/Mental Status: []Pt alert and oriented, casually dressed and groomed. Eye contact good. Motor activity appropriate. Speech within normal limits. Affect congruent, mood euthymic. Thoughts linear, logical, no signs of hallucinations or delusions. Client Response/Progress/Benefit: [] Pt engaged in session AEB listening attentively to others and providing insight to group discussion. Pt engaged in activity, able to connect how it can be uncomfortable and difficult to accept when things are out of one?s own control. Pt worked with group to identify what things in life can be hard to accept. Group identified things hard to accept as: of a loved one, body image, loss of relationship, mental health diagnosis, other?s behaviors, and past decisions. Pt worked on identifying what personal things are hard to accept such as ?that you can?t make people behave and losing your old self.? Pt seemed to benefit from increased awareness of importance of acceptance. Pt to continue IOP tx to prevent decompensation, reduce isolation, and increase use of healthy coping skills. Narrative Note: []
--- NOTE | 2023-06-16 11:15 | BH.SGPN.GN ---
Behaviors/Verbalizations/Mental Status: []Pt alert and oriented, casually dressed and groomed. Eye contact fair to good. Motor activity appropriate. Speech within normal limits. Affect congruent, mood anxious and content. Thoughts linear, logical, no signs of hallucinations or delusions. Client Response/Progress/Benefit: []Pt responded well to session AEB taking notes and contributing to discussion throughout. Pt engaged as group continued discussion on acceptance and the mental health benefits of practicing acceptance. Pt and peers identified what makes acceptance challenging and pt completed a self-reflection exercise on what is hard to accept in pt's life. Pt identified struggling to accept that ?Some things are out of my control and I may not find answers I am looking for? Group identified strategies to increase acceptance and pt shared wanting to focus on practicing willingness and starting with small acceptance goals. Pt appeared to benefit from gaining insight and learning strategies to increase acceptance. Pt will continue IOP tx to promote mood stability, continue to combat distortions, and prevent decompensation. Narrative Note: []
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
== END 2023-06-27 23:59 ==
LOC: BHIOP 09:00
PROVIDERS: Referring Provider Psychiatry & Neurology Psychiatry; Visit Provider Psychiatry & Neurology Psychiatry
DX: F33.2 Major depressive disorder, recurrent severe without psychotic features (principal); F43.10 Post-traumatic stress disorder, unspecified; F41.1 Generalized anxiety disorder
CPT/HCPCS: 90792; H2020; S9480; T1002; 90834

== ENCOUNTER 2023-12-01 20:24 | Emergency (ER) | payer MEDICAID, SELFPAY ==
[2023-12-01 20:25] VITALS: BP 118/92; PULSE 73; RESP 16; TEMP 35.9; O2SAT 99; BMI 30.3
[2023-12-01 20:38] LABS: Absolute Lymphocyte Count 3.16 X10^3/uL (0.83-4.51); Absolute Neutrophil Count 6.5 X10^3/uL (2.0-7.7); Basophil# 0.07 X10^3/uL; Basophil% 0.6 % (0-1); Eosinophil# 0.69 X10^3/uL; Eosinophils% 6.2 % (0-5); Hematocrit 41.4 % (37-47); Hemoglobin 14.2 g/dL (12.0-15.0); Lymphocyte # 3.16 X10^3/ul (0.83-4.51); Lymphocyte % 28.5 % (19-41); Mean Corp Hgb Conc 34.3 g/dL (32-36); Mean Corpuscular Hgb 30.4 pg (27.0-32.0); Mean Corpuscular Volume 88.7 fL (81-99); Mean Platelet Vol. 9.5 fl (6.2-12.0); Monocyte# 0.65 X10^3/uL; Monocyte% 5.9 % (0-10); NRBC Flagged by Analyzer 0 % (0-5); Neutrophil # 6.51 X10^3/uL (2.7-7.7); Neutrophil % 58.6 % (47-70); Platelet Count 353 K/mm3 (150-450); RBC Distribution Width CV 12.5 % (11.6-14.6); RBC Distribution Width SD 40.3 fl (35.1-43.9); Red Blood Count 4.67 M/mm3 (4.2-5.4); White Blood Count 11.1 K/mm3 (4.4-11.0)
[2023-12-01 20:49] LABS: Internal QC Validated? YES +Cl - CLEAR BKGD; Pregnancy, Serum, hCG Quali. NEGATIVE Negative
[2023-12-01 20:58] LABS: ALB/GLOB Ratio 0.9 RATIO (0.9-2.4); AST(SGOT) 16 U/L (15-37); Alanine Aminotransfer ALT/SGPT 19 U/L (13-56); Albumin, Serum 3.7 g/dL (3.2-5.0); Alkaline Phosphatase 75 U/L (45-117); Anion Gap 2 (5-15); BUN 9 mg/dL (7-18); BUN/Creat Ratio 12.7 RATIO (10-20); Chloride 106 mmol/L (98-107); Creatinine, Serum 0.71 mg/dL (0.55-1.02); EST Glomerular Filtration Rate 101 mL/min (>60); Est Glom Filt Rate - Afr Amer 122 mL/min (>60); Estimated Creatinine Clearance 129.45 ml/min; Globulin 3.9 g/dL (2.2-4.2); Glucose 86 mg/dL (74-106); Lipase 23 U/L (13-75); Potassium 3.9 mmol/L (3.5-5.1); Protein, Total 7.6 g/dL (6.4-8.2); Sodium Level 138 mmol/L (136-145)
[2023-12-01 22:05] LABS: Bacteria 0 SEEN /hpf (None Seen); Mucous, Urine 0 SEEN /hpf (<or=2+); White Blood Cells 0 SEEN /hpf (0-5)
[2023-12-01 22:07] LABS: Color, Urine Yellow (Yellow); Glucose, Dipstick Normal (Normal); Ketone-Dipstick Negative (Negative); Leukocyte Esterase-Dipstick 25 /ul (Negative); Nitrite-Dipstick Negative (Negative); Occult Blood-Urine 10 /ul (Negative); Protein-Dipstick Negative (Negative); Urine Bilirubin Dipstick Negative (Negative); Urine Clarity Clear (Clear); Urine Urobilinogen Normal (Normal)
[2023-12-01 22:15] LABS: Red Blood Cells-Urine 0-5 SEEN /hpf (0-5); Squamous Epithelial Cells - UA 0-5 SEEN /hpf (5-10)
--- NOTE | 2023-12-01 22:25 | CT_ITS ---
EXAM: CT ABDOMEN AND PELVIS WITH INTRAVENOUS CONTRAST CLINICAL INDICATION: abdominal pain TECHNIQUE: Helically acquired images were obtained of the abdomen and pelvis with intravenous contrast. This CT exam was performed using one or more of the following dose reduction techniques: automated exposure control, adjustment of the mA and/or kV according to patient size, and/or use of iterative reconstruction technique. CONTRAST: IV 100mL Isovue-370 RADIATION DOSE: CTDIvol = 13.26 mGy, DLP = 1035.90 mGy-cm COMPARISON: No relevant prior studies available. FINDINGS: LOWER THORAX: Unremarkable. Lung bases are clear. No cardiomegaly. No significant pericardial effusion. ABDOMEN: LIVER: Unremarkable. Homogeneous. No focal mass. GALLBLADDER AND BILE DUCTS: Unremarkable. No calcified gallstones. No gallbladder distention or wall edema. No intra- or extrahepatic biliary ductal dilation. PANCREAS: Unremarkable. No focal cystic or solid mass. SPLEEN: Unremarkable. Normal size without focal cystic or solid mass. ADRENALS: Unremarkable. No nodules. KIDNEYS AND URETERS: Unremarkable. Normal renal size and position. No hydronephrosis. STOMACH AND BOWEL: Unremarkable. No stomach or bowel distention. No focal inflammatory change. PELVIS: APPENDIX: The appendix is normal. BLADDER: Unremarkable. REPRODUCTIVE: IUD in uterus. ABDOMEN and PELVIS: INTRAPERITONEAL SPACE: Unremarkable. No ascites or other fluid collection. No free air. BONES/JOINTS: Unremarkable. No suspicious lytic or blastic abnormality. SOFT TISSUES: Unremarkable. No discrete abdominal or pelvic wall hernia. VASCULATURE: Unremarkable. Abdominal aorta is non-dilated. LYMPH NODES: Unremarkable. No enlarged lymph nodes. CT/Abdomen/Pelvis W IV Cont ONLY IMPRESSION: No acute findings in the abdomen or pelvis. Electronically Signed: Edmar Crockett MD at 23:43 EST ,
[2023-12-01] MEDS: Mag Hydrox/Al Hydrox/Simeth 30 ML UDC PO (22:28)
--- OUTSIDE RECORDS SUMMARY | 2023-12-01 22:31 | XMS RPT_ITS | CCD ---
Author Name Unknown Address [address] [place] [address] Organization [facility] Care Team Providers Care Lean Facilitator Name Role Phone Unavailable Primary Care Provider UnavailAngy Pennington PA-C Primary Care Provider ANGY ISSA Attending Unavailable ANGY ISSA Primary Care Unavailable Allergies Allergy Classification Reported Allergen(s) Allergy Type Date of Onset Reaction(s) Facility (5 sources) Amoxicillin; Translations: [AMOXICILLIN] Drug Allergy 12-13-2012 Anu Mortensen [facility] Work Phone: Medications Completed/Discontinued Medications Medication Drug Class(es) Dates Sig (Normalized) Sig (Original) [id number] 200 actuat albuterol 0.09 mg/actuat metered dose inhaler (4 sources) beta2-Adrenergic Agonist Start: 06-20-2023 take 2 puff(s) by inhalation every six hours as needed albuterol HFA (PROAIR HFA) 90 mcg/actuation inhaler Inhale 2 Puffs as instructed every 6 hours as needed. 18 g 0 06/20/2023 Active Problems Active Problems Problem Classification Problem Date Documented Da te Episodic/Chronic Anxiety disorders (12 sources) Anxiety; Translations: [Anxiety disorder, unspecified] Onset: 07-30-2011 07-30-2011 Chronic Asthma (4 sources) Asthmatic bronchitis; Translations: [Unspecified asthma, uncomplicated] Onset: 07-30-2011 07-30-2011 Chronic Mood disorders (4 sources) Depressive disorder; Translations: [Depression] Onset: 03-24-2011 09-23-2021 Chronic Viral infection (1 source) Viral disease; Translations: [Viral infection, unspecified] 06-20-2023 Episodic Past or Other Problems Problem Classification Problem Date Documented Da te Episodic/Chronic Diabetes or abnormal glucose tolerance complicating ; childbirth; or the puerperium (4 sources) Gestational diabetes mellitus; Translations: [Gestational diabetes mellitus in , unspecified control] Onset: 11-22-2013 12-05-2013 Episodic Other and delivery including normal (4 sources) Normal in primigravida; Translations: [Encounter for supervision of normal first , unspecified trimester] Onset: 09-23-2013 09-23-2013 Episodic Residual codes; unclassified (4 sources) Family history of intellectual disability; Translations: [Family history of intellectual disabilities] Onset: 07-12-2013 09-23-2021 Episodic Screening and history of mental health and substance abuse codes (4 sources) Stopped smoking; Translations: [Personal history of nicotine dependence] Onset: 07-12-2013 09-23-2021 Episodic Results Test Name Value Interpretation Reference Range Facil ity Vital Signs Date Time Vital Sign Value Performing Clinician Veto glass 07-21-2023 14:12-0400 Body temperature 96.91 [degF] Angy Denbow PA-C Work Phone: [facility] 07-21-2023 14:12-0400 Body weight 83.46 kg Angy Denbow PA-C Work Phone: [facility] 07-21-2023 14:12-0400 Diastolic blood pressure 78 mm[Hg] Angy Denbow PA-C Work Phone: [facility] 07-21-2023 14:12-0400 Heart rate 82 /min Angy Denbow PA-C Work Phone: [facility] 07-21-2023 14:12-0400 Respiratory rate 18 /min Angy Denbow PA-C Work Phone: [facility] 07-21-2023 14:12-0400 SaO2% (BldA) [Mass fraction] 100 % Angy Denbow PA-C Work Phone: [facility] 07-21-2023 14:12-0400 Systolic blood pressure 110 mm[Hg] Angy Denbow PA-C Work Phone: [facility] 06-20-2023 08:52-0400 Body temperature 99 [degF] Sherif Ktleerin CONTACT LENS TECHNICIAN.MANDOLIN REPAIRER Work Phone: [facility] 06-20-2023 08:52-0400 Body weight 83.64 kg Sherif Ktleerin CONTACT LENS TECHNICIAN.MANDOLIN REPAIRER Work Phone: [facility] 06-20-2023 08:52-0400 Diastolic blood pressure 87 mm[Hg] Sherif Pendlebury CONTACT LENS TECHNICIAN.MANDOLIN REPAIRER Work Phone: [facility] 06-20-2023 08:52-0400 Heart rate 80 /min Sherif Jordan CONTACT LENS TECHNICIAN.MANDOLIN REPAIRER Work Phone: [facility] 06-20-2023 08:52-0400 Respiratory rate 20 /min Sherifjia Merazleerin CONTACT LENS TECHNICIAN.MANDOLIN REPAIRER Work Phone: [facility] 06-20-2023 08:52-0400 SaO2% (BldA) [Mass fraction] 98 % Sherif Jordan CONTACT LENS TECHNICIAN.MANDOLIN REPAIRER Work Phone: [facility] 06-20-2023 08:52-0400 Systolic blood pressure 128 mm[Hg] Sherif Merazfer CONTACT LENS TECHNICIAN.MANDOLIN REPAIRER Work Phone: [facility] Encounters Encounter Date Encounter Type Care Provider Facility Start: 07-31-2023 Telephone encounter Jovanna Karthikeyan napier [facility] Work Phone: Psychology Plan of Treatment Date Care Activity Detail Author Start: 07-21-2024 Annual PCP Team Can Crimper elenita Disease Visit Annual PCP Team Chronic Disease Visit [facility] Start: 07-21-2024 Covid-19 Vaccine (#1) Covid-19 Vacci ne (#1) [facility] Immunizations Immunization Date Immunization Notes Care Provider Fa cilijacques 06-28-2018 hepatitis A vaccine, adult dosage Sherifjia Ortega CONTACT LENS TECHNICIAN.MANDOLIN REPAIRER Work Phone: [facility] 05-19-2012 human papilloma viru s vaccine, quadrivalent Sherif Ortega CONTACT LENS TECHNICIAN.MANDOLIN REPAIRER Work Phone: [facility] 05-01-2005 hepatitis B vaccine, pediatric or pediatric/adolescent dosage Sherif Pendfer CONTACT LENS TECHNICIAN.MANDOLIN REPAIRER Work Phone: [facility] Work Phone: 05-01-2005 Meningococcal, MCV4, unspecified conjugate formulation(groups A, C, Y and W-135) [facility] Work Phone: [facility] Work Phone: 05-08-2003 hepatitis B vaccine, pediatric or pediatric/adolescent dosage [facility] LENS TECHNICIAN.MANDOLIN REPAIRER Work Phone: [facility] Work Phone: 11-02-2002 hepatitis B vaccine, pediatric or pediatric/adolescent dosage [facility]ENS TECHNICIAN.[facility] Work Phone: [facility] Work Phone: 11-02-2002 measles, mumps and rubella virus vaccine Sherif [facility] CONTACT LENS TECHNICIAN.[facility] Work Phone: [facility] Work Phone: 06-07-1996 diphtheria, tetanus toxoids and acellular pertussis vaccine [facility] CONTACT LENS TECHNICIAN.MANDOLIN REPAIRER Work Phone: [facility] Work Phone: 06-07-1996 trivalent poliovirus vaccine, live, oral Sherifjia Ortega CONTACT LENS TECHNICIAN.[facility] Work Phone: [facility] Work Phone: 06-28-1992 diphtheria, tetanus toxoids and pertussis vaccine [facility] CONTACT LENS TECHNICIAN.[facility] Work Phone: [facility] Work Phone: 06-28-1992 haemophilus influenz ae type b vaccine, HbOC conjugate [facility] CONTACT LENS TECHNICIAN.MANDOLIN REPAIRER Work Phone: [facility] Work Phone: 06-28-1992 measles, mumps and rubella virus vaccine [facility] CONTACT LENS TECHNICIAN.MANDOLIN REPAIRER Work Phone: [facility] Work Phone: 09-15-1991 diphtheria, tetanus toxoids and pertussis vaccine [facility] CONTACT LENS TECHNICIAN.MANDOLIN REPAIRER Work Phone: [facility] Work Phone: 09-15-1991 haemophilus influenz ae type b vaccine, HbOC conjugate Sherif Pendlebury CONTACT LENS TECHNICIAN.MANDOLIN REPAIRER Work Phone: [facility] Work Phone: 04-28-1991 diphtheria, tetanus toxoids and pertussis vaccine Sherif Pendlebury CONTACT LENS TECHNICIAN.[facility] Work Phone: [facility] Work Phone: 04-28-1991 haemophilus influenz ae type b vaccine, HbOC conjugate Sherif Pendlebury CONTACT LENS TECHNICIAN.[facility] Work Phone: [facility] Work Phone: 04-28-1991 trivalent poliovirus vaccine, live, oral Sherif Pendlebury CONTACT LENS TECHNICIAN.[facility] Work Phone: [facility] Work Phone: 02-22-1991 diphtheria, tetanus toxoids and pertussis vaccine Sherif Pendlebury CONTACT LENS TECHNICIAN.MANDOLIN REPAIRER Work Phone: [facility] Work Phone: 02-22-1991 trivalent poliovirus vaccine, live, oral Sherif Pendlebury CONTACT LENS TECHNICIAN.[facility] Work Phone: [facility] Work Phone: Payers Date Payer Category Payer Medicaid [id number] 2022 Medicaid [id number] Social History Date Type Detail Facility Start: 06-20-2023 Tobacco smoking stat us MOIS Occasional tobacco smoker [facility] End: 02-26-2013 History of tobacco use Cigarette Smoker [facility] Start: 06-20-2023 Tobacco use and exposure Smokeless t obacco non-user [facility] Start: 06-20-2023 End: 07-21-2023 Alcohol intake Current drinker of alcohol (finding) [facility] Start: 06-20-2023 End: 07-21-2023 Alcohol intake [facility] Start: 06-20-2023 End: 07-21-2023 Tobacco use panel [facility] National Score (1-10 0), lower number is lower risk Not on file [facility] Start: 07-12-2013 Alcohol Comment NOT WHILE [facility] Start: 1990 Sex Assigned At Not on file [facility] Clinical Notes 07-12-2013 to 07-31-2023 Telephone Encounter - Jovanna Childers LPCC - 07/31/2023 4:32 PM EDTAngy Issa PA-C - 07/21/2023 2:42 PM EDTTelephone Encounter - Susu Brandon MA - 06/21/2023 12:29 PM EDT Note Date & Type Note Facility 07-31-2023 Miscellaneous Notes Behavioral Health Social Work Progress Note Patient identified for [facility] from: PCP Reason for referral: Resources Behavioral Health Resources: Psychology - talk therapy [facility] encounter type: Telephone Encounter Attempts to Outreach: 2 attempts Patient Discharged?: No Patient reported that caregiver was able to meet their needs today?: N/A Phone call was placed to patient. Message was left with brief nature of call and requesting a call back. Pt does not have MyChart. Awaiting return call. ERICA Franklin-S July 31, 2023 documented in this encounter [facility] 07-21-2023 Note HNO ID: [id number] Author: Angy Issa PA-C Service: ? Author Type: Physician Glass Mechanic Type: Progress Notes Filed: 07/22/2023 8:29 PM Note Text: CC: Patient presents with: Rx Refills HPI Zena Mireles is a 32 year old female who presents today for medication refills of Celexa for depression/anxiety. Have been off and on various antidepressants in her adult life, but has done the best on celexa (less zombie like). The medication definitely helps, but pt reports her and her mom have wondered if there's a manic component. Had a lot of stress at work previously, but currently seems to have subsided. She is currently looking for a therapist. Sleep is good- falls asleep and stays asleep fine. Usually sleeps about 6 hours/night. REVIEW OF SYSTEMS See HPI All other systems negative. PAST MEDICAL HISTORY Diagnosis Date Anemia Anxiety and depression 02/08/2015 Deafness in left ear Depression 03/24/2011 Extensive tattoos FRACTURE 2002 LEFT ELBOW Gestational diabetes 11/22/2013 PMH - PAST MEDICAL HISTORY OF Color Vision - Normal PMH - PAST MEDICAL HISTORY OF meningitis @ 4 years of age PAST SURGICAL HISTORY Procedure Laterality Date NONE ALLERGIES Amoxicillin MEDICATIONS albuterol HFA (PROAIR HFA) 90 mcg/actuation inhaler Inhale 2 Puffs as instructed every 6 hours as needed. citalopram (CELEXA) 20 mg tablet Take 1/2 tablet (10mg) by mouth daily for 7 days. Then take a whole tablet (20mg) by mouth daily thereafter. benzonatate (TESSALON PERLES) 100 mg capsule Take 1 capsule by mouth three times daily as needed for cough. (Patient not taking: Reported on 07/21/2023) FAMILY HISTORY Adopted: Yes Problem Relation Age of Onset Asthma Other GRANDPARENTS AND UNCLE Hypertension Mother Mother with severe HTN in Hypertension Maternal Grandmother Hypertension Maternal Grandfather Social History Tobacco Use Smoking status: Some Days Years: 1 Types: Cigarettes Last attempt to quit: 02/26/2013 Years since quittin.4 Smokeless tobacco: Never Vaping Use Vaping Use: Never used Substance Use Topics Alcohol use: Yes Alcohol/week: 2.5 standard drinks of alcohol Types: 1 Mixed Drinks per week Comment: NOT WHILE Drug use: No PHYSICAL EXAM BP 110/78 Pulse 82 Temp 36.1 ?C (96.9 ?F) Resp 18 Wt 83.5 kg (184 lb) LMP 07/21/2023 (Exact Date) SpO2 100% BMI 29.70 kg/m? General Appearance: well appearing, in no acute distress, alert Psych: mood and affect broad and appropriate Skin: Skin color, texture, turgor normal for age Lungs: Lungs clear to auscultation. No wheezing, rhonchi, rales. Heart: RRR without murmur, gallop, or rubs. Extremities: No gross deformities, significant edema, skin discoloration, clubbing or cyanosis. Neurological: Gait normal. No focal neurological deficits. Sensation grossly intact. ASSESSMENT/PLAN: 1. Anxiety with depression - ICD9: 300.4, ICD10: F41.8 (primary diagnosis) Doing well on current regimen of citalopram. Refills provided per patient request. We will reassess in 4 to 6 weeks to determine if dosage adjustment is needed. Consult placed to behavioral health to discuss possible manic component more in depth. - CITALOPRAM 10 MG TABLET - CONSULT TO [facility] 2. Panic disorder - ICD9: 300.01, ICD10: F41.0 See above - CITALOPRAM 10 MG TABLET - CONSULT TO [facility] Follow-up 4-6 weeks mood Prescription instructions reviewed with patient as applicable. Potential red flag symptoms discussed with the patient. Reviewed appropriate action plan to take if red flag symptoms occur. Patient agreeable to treatment plan. Angy Issa PA-C [facility] 07-21-2023 History of Presen t illness Narrative CC: Patient presents with: Rx Refills HPI Zena Mireles is a 32 year old female who presents today for medication refills of Celexa for depression/anxiety. Have been off and on various antidepressants in her adult life, but has done the best on celexa (less zombie like). The medication definitely helps, but pt reports her and her mom have wondered if there's a manic component. Had a lot of stress at work previously, but currently seems to have subsided. She is currently looking for a therapist. Sleep is good- falls asleep and stays asleep fine. Usually sleeps about 6 hours/night. REVIEW OF SYSTEMS See HPI All other systems negative. PAST MEDICAL HISTORY Diagnosis Date Anemia Anxiety and depression 02/08/2015 Deafness in left ear Depression 03/24/2011 Extensive tattoos FRACTURE 2002 LEFT ELBOW Gestational diabetes 11/22/2013 PMH - PAST MEDICAL HISTORY OF Color Vision - Normal PMH - PAST MEDICAL HISTORY OF meningitis @ 4 years of age PAST SURGICAL HISTORY Procedure Laterality Date NONE ALLERGIES Amoxicillin MEDICATIONS albuterol HFA (PROAIR HFA) 90 mcg/actuation inhaler Inhale 2 Puffs as instructed every 6 hours as needed. citalopram (CELEXA) 20 mg tablet Take 1/2 tablet (10mg) by mouth daily for 7 days. Then take a whole tablet (20mg) by mouth daily thereafter. benzonatate (TESSALON PERLES) 100 mg capsule Take 1 capsule by mouth three times daily as needed for cough. (Patient not taking: Reported on 07/21/2023) FAMILY HISTORY Adopted: Yes Problem Relation Age of Onset Asthma Other GRANDPARENTS AND UNCLE Hypertension Mother Mother with severe HTN in Hypertension Maternal Grandmother Hypertension Maternal Grandfather Social History Tobacco Use Smoking status: Some Days Years: 1 Types: Cigarettes Last attempt to quit: 02/26/2013 Years since quittin.4 Smokeless tobacco: Never Vaping Use Vaping Use: Never used Substance Use Topics Alcohol use: Yes Alcohol/week: 2.5 standard drinks of alcohol Types: 1 Mixed Drinks per week Comment: NOT WHILE Drug use: No PHYSICAL EXAM BP 110/78 Pulse 82 Temp 36.1 C (96.9 F) Resp 18 Wt 83.5 kg (184 lb) LMP 07/21/2023 (Exact Date) SpO2 100% BMI 29.70 kg/m General Appearance: well appearing, in no acute distress, alert Psych: mood and affect broad and appropriate Skin: Skin color, texture, turgor normal for age Lungs: Lungs clear to auscultation. No wheezing, rhonchi, rales. Heart: RRR without murmur, gallop, or rubs. Extremities: No gross deformities, significant edema, skin discoloration, clubbing or cyanosis. Neurological: Gait normal. No focal neurological deficits. Sensation grossly intact. ASSESSMENT/PLAN: 1. Anxiety with depression - ICD9: 300.4, ICD10: F41.8 (primary diagnosis) Doing well on current regimen of citalopram. Refills provided per patient request. We will reassess in 4 to 6 weeks to determine if dosage adjustment is needed. Consult placed to behavioral health to discuss possible manic component more in depth. - CITALOPRAM 10 MG TABLET - CONSULT TO [facility] 2. Panic disorder - ICD9: 300.01, ICD10: F41.0 See above - CITALOPRAM 10 MG TABLET - CONSULT TO [facility] Follow-up 4-6 weeks mood Prescription instructions reviewed with patient as applicable. Potential red flag symptoms discussed with the patient. Reviewed appropriate action plan to take if red flag symptoms occur. Patient agreeable to treatment plan. Angy Issa PA-C documented in this encounter [facility] 06-21-2023 Note HNO ID: [id number] Author: Sherif Ortega APRN.MANDOLIN REPAIRER Service: ? Author Type: Nurse Practitioner Type: Progress Notes Filed: 06/21/2023 1:16 PM Note Text: Subjective HPI Nontoxic-appearing female presents urgent care accompanied by mother. Chief complaint body aches chills low-grade temperature cough headache chest congestion. Patient was seen here yesterday. Negative flu COVID and influenza test. Presents today with worsening symptoms. Cough is bothersome. Has been using albuterol inhaler this has helped some. Denies any high fevers chest pain hemoptysis nausea vomiting abdominal pain or change in bowel or bladder habits. Past medical history prescription medication use allergies reviewed. BP 113/79 Pulse 83 Temp 37.1 ?C (98.8 ?F) Resp 22 Wt 82.6 kg (182 lb 3.2 oz) LMP 06/01/2023 (Approximate) SpO2 98% BMI 29.41 kg/m? .Patient presents with: Cough: Unable to speak, congestion in nasal and chest sx worsening PAST MEDICAL HISTORY Diagnosis Date Anemia Anxiety and depression 02/08/2015 Deafness in left ear Depression 03/24/2011 Extensive tattoos FRACTURE 2003 LEFT ELBOW Gestational diabetes 11/22/2013 PMH - PAST MEDICAL HISTORY OF Color Vision - Normal PMH - PAST MEDICAL HISTORY OF meningitis @ 4 years of age PAST SURGICAL HISTORY Procedure Laterality Date NONE ALLERGIES Amoxicillin MEDICATIONS albuterol HFA (PROAIR HFA) 90 mcg/actuation inhaler Inhale 2 Puffs as instructed every 6 hours as needed. citalopram (CELEXA) 20 mg tablet Take 1/2 tablet (10mg) by mouth daily for 7 days. Then take a whole tablet (20mg) by mouth daily thereafter. FAMILY HISTORY Adopted: Yes Problem Relation Age of Onset Asthma Other GRANDPARENTS AND UNCLE Hypertension Mother Mother with severe HTN in Hypertension Maternal Grandmother Hypertension Maternal Grandfather Social History Tobacco Use Smoking status: Some Days Years: 1 Types: Cigarettes Last attempt to quit: 02/26/2013 Years since quittin.3 Smokeless tobacco: Never Vaping Use Vaping Use: Never used Substance Use Topics Alcohol use: Yes Alcohol/week: 2.5 standard drinks of alcohol Types: 1 Mixed Drinks per week Comment: NOT WHILE Drug use: No Review of Systems Constitutional: Positive for chills and malaise/fatigue. Negative for fever. HENT: Positive for congestion and sore throat. Negative for ear discharge, ear pain and sinus pain. Eyes: Negative for blurred vision, pain, discharge and redness. Respiratory: Positive for cough and wheezing. Negative for hemoptysis, sputum production, shortness of breath and stridor. Cardiovascular: Negative for chest pain. Gastrointestinal: Negative for abdominal pain, diarrhea, nausea and vomiting. Musculoskeletal: Positive for myalgias. Skin: Negative for itching and rash. Neurological: Positive for headaches. Negative for dizziness. Objective Physical Exam Constitutional: General: She is not in acute distress. Appearance: She is not diaphoretic. HENT: Head: Normocephalic. Jaw: No trismus, tenderness, swelling or pain on movement. Right Ear: Tympanic membrane, ear canal and external ear normal. Left Ear: Tympanic membrane, ear canal and external ear normal. Nose: Rhinorrhea present. Mouth/Throat: Mouth: Mucous membranes are moist. Pharynx: Oropharynx is clear. Uvula midline. No pharyngeal swelling, oropharyngeal exudate, posterior oropharyngeal erythema or uvula swelling. Eyes: Conjunctiva/sclera: Conjunctivae normal. Pupils: Pupils are equal, round, and reactive to light. Cardiovascular: Rate and Rhythm: Normal rate and regular rhythm. Heart sounds: Normal heart sounds. Pulmonary: Effort: Pulmonary effort is normal. No tachypnea, accessory muscle usage or respiratory distress. Breath sounds: No stridor. Wheezing present. No rhonchi or rales. Abdominal: General: There is no distension. Palpations: Abdomen is soft. Tenderness: There is no abdominal tenderness. There is no guarding or rebound. Musculoskeletal: Cervical back: Normal range of motion and neck supple. No edema, erythema, rigidity or tenderness. No pain with movement. Normal range of motion. Lymphadenopathy: Cervical: No cervical adenopathy. Skin: General: Skin is warm and dry. Neurological: Mental Status: She is alert and oriented to person, place, and time. ASSESSMENT/PLAN: 1. Viral illness - ICD9: 079.99, ICD10: B34.9 Diagnosed with viral illness. Some wheezing noted on auscultation. History of asthma. Placed on prednisone burst and cough suppressant. Follow-up with PCP 2 to 3 days reevaluation. Red flags for prompt elevation discussed. Patient was educated on supportive therapies. Patient was instructed to immediately proceed to emergency room for any new, worsening, or symptoms lasting longer than anticipated. The patient's clinical presentation is otherwise unremarkable at (more content not included)... [facility] 06-21-2023 Miscellaneous Notes Patient returned to office today to be seen again, notified of results. Susu Brandon MA First call attempt, no answer and unable to leave VM. Will try again later. Susu Brandon MA Please notify of negative flu and covid test. Continue comfort measures for symptoms as you would for a cold. Any worsening symptoms follow up with PCP or ER. Delores Pinedo APRN.REZA documented in this encounter [facility] 06-20-2023 Note HNO ID: [id number] Author: Sherif Ortega APRN.REZA Service: ? Author Type: Nurse Practitioner Type: Progress Notes Filed: 06/20/2023 9:14 AM Note Text: Subjective HPI Nontoxic-appearing female presents to urgent care with chief complaint of fever and cough. Duration of symptoms 1 day. Associated symptoms with today's chief complaint are on and off headache, muscle aches, fatigue, nonproductive cough. Patient stated symptoms started abruptly. Patient states they have used [id number] medication with some success. Patient states they were in contact with individuals with similar signs and symptoms.. Patient denies any pain at this time. Patient denies any visual changes, visual disturbance, shortness of breath, rash, exercise intolerance, pleuritic pain, productive cough, abdominal pain, nausea, vomiting, chest pain, or change in bowel or bladder habits. Past medical history prescription medication use allergies reviewed. Denies chance of . .Patient presents with: Chest Congestion: Nasal congestion, body aches,cough x 1 day PAST MEDICAL HISTORY Diagnosis Date Anemia Anxiety and depression 02/08/2015 Deafness in left ear Depression 03/24/2011 Extensive tattoos FRACTURE 2003 LEFT ELBOW Gestational diabetes 11/22/2013 PMH - PAST MEDICAL HISTORY OF Color Vision - Normal PMH - PAST MEDICAL HISTORY OF meningitis @ 4 years of age PAST SURGICAL HISTORY Procedure Laterality Date NONE ALLERGIES Amoxicillin MEDICATIONS citalopram (CELEXA) 20 mg tablet Take 1/2 tablet (10mg) by mouth daily for 7 days. Then take a whole tablet (20mg) by mouth daily thereafter. FAMILY HISTORY Adopted: Yes Problem Relation Age of Onset Asthma Other GRANDPARENTS AND UNCLE Hypertension Mother Mother with severe HTN in Hypertension Maternal Grandmother Hypertension Maternal Grandfather Social History Tobacco Use Smoking status: Some Days Years: 1 Types: Cigarettes Last attempt to quit: 02/26/2013 Years since quittin.3 Smokeless tobacco: Never Vaping Use Vaping Use: Never used Substance Use Topics Alcohol use: Yes Alcohol/week: 2.5 standard drinks of alcohol Types: 1 Mixed Drinks per week Comment: NOT WHILE Drug use: No BP 128/87 Pulse 80 Temp 37.2 ?C (99 ?F) Resp 20 Wt 83.6 kg (184 lb 6.4 oz) LMP 06/01/2023 (Approximate) SpO2 98% BMI 29.76 kg/m? Review of Systems Constitutional: Positive for chills and malaise/fatigue. Negative for fever. HENT: Positive for congestion and sore throat. Negative for ear discharge, ear pain and sinus pain. Eyes: Negative for blurred vision, pain, discharge and redness. Respiratory: Positive for cough. Negative for hemoptysis, sputum production, shortness of breath, wheezing and stridor. Cardiovascular: Negative for chest pain. Gastrointestinal: Negative for abdominal pain, diarrhea, nausea and vomiting. Musculoskeletal: Positive for myalgias. Skin: Negative for itching and rash. Neurological: Positive for headaches. Negative for dizziness. Objective Physical Exam Constitutional: General: She is not in acute distress. Appearance: She is not diaphoretic. HENT: Head: Normocephalic. Jaw: No trismus, tenderness, swelling or pain on movement. Nose: Congestion present. Mouth/Throat: Mouth: Mucous membranes are moist. Pharynx: Oropharynx is clear. Uvula midline. No pharyngeal swelling, oropharyngeal exudate, posterior oropharyngeal erythema or uvula swelling. Eyes: Conjunctiva/sclera: Conjunctivae normal. Pupils: Pupils are equal, round, and reactive to light. Cardiovascular: Rate and Rhythm: Normal rate and regular rhythm. Heart sounds: Normal heart sounds. Pulmonary: Effort: Pulmonary effort is normal. No tachypnea, accessory muscle usage or respiratory distress. Breath sounds: Normal breath sounds. No stridor. No wheezing, rhonchi or rales. Abdominal: General: There is no distension. Palpations: Abdomen is soft. Tenderness: There is no abdominal tenderness. There is no guarding or rebound. Musculoskeletal: Cervical back: Normal range of motion and neck supple. No edema, erythema, rigidity or tenderness. No pain with movement. Normal range of motion. Lymphadenopathy: Cervical: No cervical adenopathy. Skin: General: Skin is warm and dry. Neurological: Mental Status: She is alert and oriented to person, place, and time. ASSESSMENT/PLAN: 1. Viral illness - ICD9: 079.99, ICD10: B34.9 - COVID AND INFLUENZA A/B NAAT, ROUTINE Patient nontoxic-appearing. Hemodynamically stable. Suspicion of viral etiology of illness. Test for COVID-19 influenza. Patient was educated on supportive therapies. Patient will follow up with primary care provider as needed. Patient was instructed to immediately proceed to emergency room for any new, worsening, or symptoms lasting longer than anticipated. The patient's clinical prese (more content not included)... [facility] 06-20-2023 Instructions Sherif Ortega APRN.MANDOLIN REPAIRER - 06/20/2023 9:09 AM EDT How to Manage Common Symptoms Associated with COVID for Adults Fever- Fever is a temperature over 100.4 F and can occur when the body is fighting an infection. To help treat a fever: Drink plenty of fluids and stay well hydrated. Eat small amounts of easy to digest food. Rest. Your body needs rest to recover, but getting up and moving around the house frequently is a good idea. You should try to continue doing your normal daily activities (bathing, toileting, grooming, cooking), though you will probably feel tired, and need to rest often. Avoid any heavy activity or exercise, as this will increase your body temperature. Dress in light clothing and stay covered in a light sheet. Keep the room temperature cool. Take a slightly warm (not cold or cool) bath, or apply damp washcloths to the forehead and wrists. Cough- Cough is a common symptom associated with COVID and can be bothersome. To help treat a cough: Stay well hydrated. Try warm water or tea with lemon and/or honey to help soothe the cough. Use a humidifier to add moisture to the air. Try a product with menthol, like a cough drop or a rub for your chest such as Vicks, which can help reduce cough. Try cough drops. Avoid smoking and other strong odors or perfumes. Try breathing exercises to keep your lungs open and clear. Take a big deep breath through your nose and hold for 5 seconds before slowly releasing. Repeat frequently, while you are awake. Congestion- Runny nose or nasal congestion can occur with COVID. Treatment can help relieve symptoms: Try OTC nasal saline spray, or nasal saline rinse to relieve mucus congestion. Nasal strips can help keep nasal passages open, to increase airflow. Elevating your head with an extra pillow in bed can help reduce congestion. Using a humidifier can increase moisture in the air, and make breathing easier. Sore Throat- Another common symptom with COVID, can be managed at home by: Stay well hydrated. Gargle with salt water - mix teaspoon salt with 1 cup of warm water and gargle. This helps to loosen mucus in the back of the throat and may reduce discomfort. Try ice chips, popsicles or lozenges to soothe the throat. Nausea/Vomiting/Diarrhea- These are common symptoms, and staying hydrated is most important. If you are nauseous or vomiting, start with small sips of water every 10-15 minutes and increase as tolerated. You can try sucking an ice cube too. If tolerating, you can try pedialyte or Gatorade, or flat sprite or nino-claudia. Start slowly and increase as you are able to. Instead of meals, try smaller, more frequent snacks. Try eating bland foods like crackers, toast, rice, and applesauce. Avoid spicy, greasy or fried foods and dairy containing foods. Even if you aren't feeling hungry due to lack of smell or taste, it is important to try to take in some food when you are able. After drinking and eating, rest in an upright position for up to two hours as needed to help decrease nauseous feelings. Try closing your eyes, avoid moving and watching TV. Avoid strong odors that can make you feel more nauseated. When to seek emergency medical attention Look for emergency warning signs for COVID-19. If having any of these symptoms, seek emergency medical care immediately: Trouble breathing Persistent pain or pressure in the chest New confusion Inability to wake or stay awake Bluish lips or face *This list is not all possible symptoms. Please call your medical provider for any other symptoms that are severe or concerning to you. documented in this encounter [facility] 06-20-2023 History of Presen t illness Narrative Subjective HPI Nontoxic-appearing female presents to urgent care with chief complaint of fever and cough. Duration of symptoms 1 day. Associated symptoms with today's chief complaint are on and off headache, muscle aches, fatigue, nonproductive cough. Patient stated symptoms started abruptly. Patient states they have used [id number] medication with some success. Patient states they were in contact with individuals with similar signs and symptoms.. Patient denies any pain at this time. Patient denies any visual changes, visual disturbance, shortness of breath, rash, exercise intolerance, pleuritic pain, productive cough, abdominal pain, nausea, vomiting, chest pain, or change in bowel or bladder habits. Past medical history prescription medication use allergies reviewed. Denies chance of . .Patient presents with: Chest Congestion: Nasal congestion, body aches,cough x 1 day PAST MEDICAL HISTORY Diagnosis Date Anemia Anxiety and depression 02/08/2015 Deafness in left ear Depression 03/24/2011 Extensive tattoos FRACTURE 2003 LEFT ELBOW Gestational diabetes 11/22/2013 PMH - PAST MEDICAL HISTORY OF Color Vision - Normal PMH - PAST MEDICAL HISTORY OF meningitis @ 4 years of age PAST SURGICAL HISTORY Procedure Laterality Date NONE ALLERGIES Amoxicillin MEDICATIONS citalopram (CELEXA) 20 mg tablet Take 1/2 tablet (10mg) by mouth daily for 7 days. Then take a whole tablet (20mg) by mouth daily thereafter. FAMILY HISTORY Adopted: Yes Problem Relation Age of Onset Asthma Other GRANDPARENTS AND UNCLE Hypertension Mother Mother with severe HTN in Hypertension Maternal Grandmother Hypertension Maternal Grandfather Social History Tobacco Use Smoking status: Some Days Years: 1 Types: Cigarettes Last attempt to quit: 02/26/2013 Years since quittin.3 Smokeless tobacco: Never Vaping Use Vaping Use: Never used Substance Use Topics Alcohol use: Yes Alcohol/week: 2.5 standard drinks of alcohol Types: 1 Mixed Drinks per week Comment: NOT WHILE Drug use: No BP 128/87 Pulse 80 Temp 37.2 C (99 F) Resp 20 Wt 83.6 kg (184 lb 6.4 oz) LMP 06/01/2023 (Approximate) SpO2 98% BMI 29.76 kg/m Review of Systems Constitutional: Positive for chills and malaise/fatigue. Negative for fever. HENT: Positive for congestion and sore throat. Negative for ear discharge, ear pain and sinus pain. Eyes: Negative for blurred vision, pain, discharge and redness. Respiratory: Positive for cough. Negative for hemoptysis, sputum production, shortness of breath, wheezing and stridor. Cardiovascular: Negative for chest pain. Gastrointestinal: Negative for abdominal pain, diarrhea, nausea and vomiting. Musculoskeletal: Positive for myalgias. Skin: Negative for itching and rash. Neurological: Positive for headaches. Negative for dizziness. Objective Physical Exam Constitutional: General: She is not in acute distress. Appearance: She is not diaphoretic. HENT: Head: Normocephalic. Jaw: No trismus, tenderness, swelling or pain on movement. Nose: Congestion present. Mouth/Throat: Mouth: Mucous membranes are moist. Pharynx: Oropharynx is clear. Uvula midline. No pharyngeal swelling, oropharyngeal exudate, posterior oropharyngeal erythema or uvula swelling. Eyes: Conjunctiva/sclera: Conjunctivae normal. Pupils: Pupils are equal, round, and reactive to light. Cardiovascular: Rate and Rhythm: Normal rate and regular rhythm. Heart sounds: Normal heart sounds. Pulmonary: Effort: Pulmonary effort is normal. No tachypnea, accessory muscle usage or respiratory distress. Breath sounds: Normal breath sounds. No stridor. No wheezing, rhonchi or rales. Abdominal: General: There is no distension. Palpations: Abdomen is soft. Tenderness: There is no abdominal tenderness. There is no guarding or rebound. Musculoskeletal: Cervical back: Normal range of motion and neck supple. No edema, erythema, rigidity or tenderness. No pain with movement. Normal range of motion. Lymphadenopathy: Cervical: No cervical adenopathy. Skin: General: Skin is warm and dry. Neurological: Mental Status: She is alert and oriented to person, place, and time. ASSESSMENT/PLAN: 1. Viral illness - ICD9: 079.99, ICD10: B34.9 - COVID & INFLUENZA A/B NAAT, ROUTINE Patient nontoxic-appearing. Hemodynamically stable. Suspicion of viral etiology of illness. Test for COVID-19 influenza. Patient was educated on supportive therapies. Patient will follow up with primary care provider as needed. Patient was instructed to immediately proceed to emergency room for any new, worsening, or symptoms lasting longer than anticipated. The patient's clinical presentation is otherwise unremarkable at this time. Based on exam and clinical finding, the patient is stable for discharge. Plan of care was discussed with patient. Patient verbalizes understanding and agrees to plan of care. This note was generated using [employer] software. It may contain errors in wording, punctuation, or spelling. Sherif Ortega APRN.REZA documented in this encounter [facility] documented as of this encounter (statuses as of 06/20/2023) [facility] History of Past illness Narrative* Problem Noted Date Diagnosed Date Resolved Date with uncertain dates 07/12/2013 09/23/2013 Overview: 07/12/2013She is unsure of the date of her last menstrual period. 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 Dr. Susan Arredondo ordered an ultrasound for uncertain dates. TKRN Nausea and vomiting in 07/12/2013 09/23/2013 Overview: 07/12/2013Patient is complaining of nausea and vomiting in . Advised patient to call/come in if she is unable to keep any food or fluids down in a 24-hour period. Prescription for Phenergan written by Dr. Susan Arredondo. TKRN documented as of this encounter (statuses as of 06/21/2023) [facility] History of Past illness Narrative* Problem Noted Date Diagnosed Date Resolved Date with uncertain dates 07/12/2013 09/23/2013 Overview: 07/12/2013She is unsure of the date of her last menstrual period. 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 Dr. Susan Arredondo ordered an ultrasound for uncertain dates. TKRN Nausea and vomiting in 07/12/2013 09/23/2013 Overview: 07/12/2013Patient is complaining of nausea and vomiting in . Advised patient to call/come in if she is unable to keep any food or fluids down in a 24-hour period. Prescription for Phenergan written by Dr. Susan Arredondo. TKRN documented as of this encounter (statuses as of 07/23/2023) [facility] History of Past illness Narrative* Problem Noted Date Diagnosed Date Resolved Date with uncertain dates 07/12/2013 09/23/2013 Overview: 07/12/2013She is unsure of the date of her last menstrual period. 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 Dr. Susan rAredondo ordered an ultrasound for uncertain dates. TKRN Nausea and vomiting in 07/12/2013 09/23/2013 Overview: 07/12/2013Patient is complaining of nausea and vomiting in . Advised patient to call/come in if she is unable to keep any food or fluids down in a 24-hour period. Prescription for Phenergan written by Dr. Susan Arredondo. TKRN documented as of this encounter (statuses as of 08/01/2023) [facility] Diagnosis Viral illness- Primary Unspecified viral infection, in conditions classified elsewhere and of unspecified site [facility] Diagnosis Anxiety with depression- Primary Panic disorder Panic disorder without agoraphobia documented in this encounter [facility] Concerns Infection Onset Date Last Indicated Resolved Time COVID-19 Rule-Out 06/20/2023 06/20/2023 Summary Purpose Family History No Family History Records Found Advance Directives No Advanced Directives Records Found Additional Source Comments Source Comments (unrecognize d section and content) In the event this informatio n is protected by the Federal Confidentiality of Alcohol and Drug Abuse Patient Records regulations: The Federal rules restrict any use of the information to criminally investigate or prosecute any alcohol or drug abuse patient.[facility] the event this information is protected by the Federal Confidentiality of Alcohol and Drug Abuse Patient Records regulations: The Federal rules restrict any use of the information to criminally investigate or prosecute any alcohol or drug abuse patient.[facility] the event this information is protected by the Federal Confidentiality of Alcohol and Drug Abuse Patient Records regulations: The Federal rules restrict any use of the information to criminally investigate or prosecute any alcohol or drug abuse patient.[facility] the event this information is protected by the Federal Confidentiality of Alcohol and Drug Abuse Patient Records regulations: The Federal rules restrict any use of the information to criminally investigate or prosecute any alcohol or drug abuse patient.[facility] Reason for Visit (unrecogniz ed section and content) Reason Comments Results Reason Comments Rx Refills Reason Comments consult Care Teams (unrecognized sec tion and content) Lean Facilitator Relationship Specialty Start Date End Date Angy Issa PA-C [address] [place] [address] PCP - General Family Medicine 07/21/23 INFORMATION SOURCE (unrecogn ized section and content) FOR RECORDS PERTAINING TO PATIENTS WHO ARE OR HAVE BEEN ENROLLED IN A CHEMICAL DEPENDENCY/SUBSTANCEABUSE PROGRAM, SOME INFORMATION MAY BE OMITTED. This clinical summary was aggregated from multiple sources. Caution should be exercised in using it in the provision of clinical care. This summary normalizes information from multiple sources, and as a consequence, information in this document may materially change the coding, format and clinical context of patient data. In addition, data may be omitted in some cases. CLINICAL DECISIONS SHOULD BE BASED ON THE PRIMARY CLINICAL RECORDS. [facility]. provides no warranty or guarantee of the accuracy or completeness of information in this document.
--- NOTE | 2023-12-01 22:53 | EDS_ITS ---
HPI History of Present Illness Chief Complaint: Abd Pain Informant: patient and parent Narrative Narrative: 32-year-old female presenting to the emergency room with epigastric abdominal pain. Patient states symptoms began at approximately 0400 hrs. today. She no clari some anorexia. She states that she feels like she cannot swallow correctly as feels like maybe something gets stuck at the very end as it enters the stomach. She notes some burning pain notes that it radiates around the left into the posterior aspect of her back. She notes diarrhea that started yesterday. No fevers. He states that this is the second time that she has had an episode like this recently and wonders if this could be her gallbladder. [facility] Medical History Bipolar disorder, unspecified Generalized anxiety disorder Major depressive disorder, recurrent severe without psychotic features PTSD (post-traumatic stress disorder) Home Medications clindamycin HCl 300 mg capsule 300 mg PO TID #21 caps 05/13/23 [Rx Last Taken Unknown] citalopram 10 mg tablet (Celexa) 10 mg PO DAILY 30 days #30 tabs 06/03/23 [Rx Last Taken Unknown] hydroxyzine pamoate 25 mg capsule (Vistaril) 25 mg PO BID 30 days #120 caps 06/03/23 [Rx Last Taken Unknown] lidocaine HCl 2 % mucosal solution (Lidocaine Viscous) 5 ml PO Q6H PRN pain #100 mL 12/02/23 [Rx Last Taken Unknown] omeprazole 20 mg capsule,delayed release 20 mg PO BID 14 days #28 CAPSULES 12/02/23 [Rx Last Taken Unknown] ondansetron 4 mg disintegrating tablet 4 mg PO Q6H PRN PRN Nausea #15 tabs 12/02/23 [Rx Last Taken Unknown] Allergy/AdvReac Type Severity Reaction Status Date / Time amoxicillin [Amoxicillin] Allergy Hives Verified 06/03/23 08:36 Social History Smoking Status: Former smoker ROS ROS ED Constitutional Constitutional ED: Reports sweats; Denies chills, fever(s) or weight loss Eyes Eyes: Denies change in vision or diplopia ENT ENT ED: Denies ear pain, rhinorrhea or sore throat Cardiovascular Cardiovascular: Denies chest pain, orthopnea, palpitations or racing heartbeat Respiratory/Chest Respiratory/Chest: Denies cough, dyspnea or orthopnea Gastrointestinal Gastrointestinal: Reports abdominal pain, diarrhea, nausea and vomiting Genitourinary Genitourinary ED: Denies dysuria, hematuria or urinary frequency Musculoskeletal Musculoskeletal: Denies arthralgias or myalgias Integumentary Denies abscess or rash Neurologic Neurologic: Denies headache(s) or weakness Psychiatric Psychiatric: Denies anxiety, depression, suicidal ideation or suicidal thoughts Endocrine Endocrinology: Denies polydipsia, polyphagia or polyuria Allergic/Immunologic Allergic/Immunologic ED: Denies mouth swelling, tongue swelling or urticaria EXAM Physical Exam Const Vital Signs: 12/01/23 20:25 12/01/23 23:38 Temperature 96.6 F L Temperature Source Temporal Pulse Rate 73 82 Respiratory Rate 16 16 Blood Pressure 118/92 H 112/78 Blood Pressure Mean 100 89 Pulse Ox 99 98 Oxygen Delivery Method Room Air Room Air Positive well nourished and well developed General Appearance ED: well developed HEENT Reports normocephalic, head/scalp atraumatic and moist mucous membranes Eyes PERRL and EOMs intact bilaterally Neck no lymphadenopathy, supple and no JVD Resp normal respiratory effort and clear to auscultation bilaterally Cardio regular rate, regular rhythm and no murmurs GI Auscultation: normoactive bowel sounds Palpation: soft and tender epigastric; Negative for guarding or rebound tenderness present Back/Spine no CVA tenderness and normal ROM Extremity normal to inspection General Extremety ED: Negative for edema General Extremity: Negative for edema Neuro oriented x3 and CN's II-XII intact bilaterally Sensorium / Orientation: alert Motor Exam: strength 5/5 throughout Psych mental status grossly normal Mood & Affect: Negative for depressed or tearful Skin no rashes or lesions noted and no wounds MDM MDM MDM Narrative Medical decision making narrative: Blood work was initially obtained through nursing protocol shows a white count of 11.1 with normal differential. Serum test is negative. LFTs and lipase normal. Urinalysis negative. I did a bedside ultrasound and I do not see any obvious cholelithiasis and she was not tender over the gallbladder side. Therefore CT of the abdomen pelvis was obtained which was essentially negative. Patient received a GI cocktail and had significant improvement in her discomfort. I think most likely the patient has a gastroenteritis complicated with some gastritis. Will place her on omeprazole and Zofran. As needed viscous lidocaine for breakthrough pain. Would expect resolution of symptoms over the next several days. Return if worsening or concerns History & Record Review Discussion w/independent historian: Patient and Family Lab Data Attestation: I reviewed the patient's lab results. Labs: Laboratory Results - last 24 hr 12/01/23 12/01/23 20:32 21:55 WBC 11.1 H RBC 4.67 Hgb 14.2 Hct 41.4 MCV 88.7 MCH 30.4 MCHC 34.3 RDW Std Deviation 40.3 RDW Coeff of [place] 12.5 Plt Count 353 MPV 9.5 Immature Gran % (Auto) 0.200 Neut % (Auto) 58.6 Lymph % (Auto) 28.5 [place] % (Auto) 5.9 Eos % (Auto) 6.2 H Baso % (Auto) 0.6 Absolute Neuts (auto) 6.5 Absolute Lymphs (auto) 3.16 Nucleated RBC % 0 Sodium 138 Potassium 3.9 Chloride 106 Carbon Dioxide 30.0 Anion Gap 2 L BUN 9 Creatinine 0.71 Estim Creat Clear Calc 129.45 Est GFR (MDRD) Af Amer 122 Est GFR (MDRD) Non-Af 101 BUN/Creatinine Ratio 12.7 Glucose 86 Calcium 9.0 Total Bilirubin 0.40 AST 16 ALT 19 Alkaline Phosphatase 75 Total Protein 7.6 Albumin 3.7 Globulin 3.9 Albumin/Globulin Ratio 0.9 Lipase 23 Serum , Qual NEGATIVE Urine Color Yellow Urine Clarity Clear Urine pH 7.0 Ur Specific [place] 1.010 Urine Protein Negative Urine Glucose (UA) Normal Urine Ketones Negative Urine Occult Blood 10 H Urine Nitrite Negative Urine Bilirubin Negative Urine Urobilinogen Normal Ur Leukocyte Esterase 25 H Urine RBC 0-5 SEEN Urine WBC 0 SEEN Ur Squamous Epith Cells 0-5 SEEN Urine Bacteria 0 SEEN Urine Mucus 0 SEEN Radiography Diagnostic Testing: Clinical Impression(s) from Imaging Studies Abdomen/Pelvis CT 12/01/23 22:25 IMPRESSION: No acute findings in the abdomen or pelvis. Electronically Signed: Edmar Crockett MD at 23:43 EST , Discharge Plan Triage Chief Complaint: Abd Pain ED Provider: Dionicio Adames Dx/Rx/DC Orders Clinical Impression: Diarrhea, Gastritis, Abdominal pain Instructions: ED Gastritis (Adult) Prescriptions: New omeprazole [omeprazole] 20 mg capsule,delayed release(DR/EC) 20 mg PO BID 14 Days Qty: 28 0RF lidocaine HCl [Lidocaine Viscous] 2 % solution 5 ml PO Q6H PRN (Reason: pain) Qty: 100 0RF ondansetron [ondansetron] 4 mg tablet,disintegrating 4 mg PO Q6H PRN PRN (Reason: Nausea) Qty: 15 0RF No Action citalopram [Celexa] 10 mg tablet 10 mg PO DAILY 30 Days Qty: 30 0RF hydroxyzine pamoate [Vistaril] 25 mg capsule 25 mg PO BID 30 Days Qty: 120 0RF Rx Instructions: Take 2 po q hs also daily. clindamycin HCl 300 mg capsule 300 mg PO TID Qty: 21 0RF Primary Care Provider: Care Physician,No Primary Referrals: Care Physician,No Primary [Primary Care Provider] - Disposition Disposition: Home, Self Care
[2023-12-01 23:38] VITALS: BP 112/78; PULSE 82; RESP 16; O2SAT 98
[2023-12-02] MEDS: Pantoprazole Sodium 40 MG Tablet PO (00:44)
[2023-12-02] MEDS: Ondansetron 4 MG/2 ML Vial IV (00:44)
[2023-12-02 00:54] VITALS: BP 114/78; PULSE 69; RESP 18; TEMP 36.4; O2SAT 99
== END 2023-12-02 00:55 | disposition home or self-care (01) ==
PROVIDERS: Emergency Provider Emergency Medicine; Visit Provider Emergency Medicine
DX: K29.70 Gastritis, unspecified, without bleeding (principal); R19.7 Diarrhea, unspecified; R63.0 Anorexia; Z87.891 Personal history of nicotine dependence; Z79.899 Other long term (current) drug therapy
CPT/HCPCS: 74177; 80053; 81001; 83690; 84703; 85025; 96374; 99284; Q9967; A4216; J2405